=== PATIENT | male | born 1965 | race Asian ===

== ENCOUNTER 2019-08-07 17:53 | Emergency (ER) | payer SELFPAY ==
[2019-08-07 18:30] LABS: Absolute Lymphocytes (CBC) 2.1 K/uL (0.7-4.9); Basophils % 0.4 % (0-1.3); Hematocrit 44.3 % (39.6-49.0); Lymphocytes % 16.7 % (15.3-44.8); MPV 7.9 fL (7.6-11.3)
[2019-08-07] MEDS ORDERED: MECLIZINE HCL 12.5 MG TAB ONE (18:30)
[2019-08-07] MEDS ORDERED: NA CHLORIDE 0.9% 1,000 ML ONE (18:30)
[2019-08-07 18:32] LABS: Protime INR 1.02
[2019-08-07 18:51] LABS: BUN Blood Urea Nitrogen 12 mg/dL (7-18); Bicarbonate 26 mmol/L (21-32); Glucose Level 120 mg/dL (74-106); Potassium 3.6 mmol/L (3.5-5.1); Sodium Level 136 mmol/L (136-145); Troponin (Emerg Dept Use Only) < 0.02 ng/mL (0.0-0.045)
--- NOTE | 2019-08-07 19:02 | RAD REPORT ---
EXAM DESCRIPTION: CT - Head Brain Wo Cont - 08/07/2019 6:50 pm CLINICAL HISTORY: Dizziness COMPARISON: None. TECHNIQUE: Computed axial tomography of the head was obtained. IV contrast was not requested. All CT scans are performed using dose optimization technique as appropriate and may include automated exposure control or mA/KV adjustment according to patient size. FINDINGS: An intracranial bleed is not seen . The ventricles are normal in caliber. No extra-axial fluid collection is noted. Fluid within the sinuses/ mastoids is not seen. IMPRESSION: No acute intracranial abnormality is seen. If patient's symptoms persist MRI of the bra in would be recommended.
[2019-08-07] MEDS ORDERED: ASPIRIN 81 MG CHEWABLE TABLET ONE (19:36)
--- NOTE | 2019-08-07 19:48 | RAD REPORT ---
EXAM DESCRIPTION: CTHead angio08/07/2019 7:35 pm CLINICAL HISTORY: Ataxia/dizziness COMPARISON: None TECHNIQUE: CT angiogram of the head was obtained. 3D MIPS reconstruction performed. All CT scans are performed using dose optimization technique as appropriate and may include automated exposure control or mA/KV adjustment according to patient size. FINDINGS: The basilar, internal carotid, anterior cerebral, middle cerebral and posterior cerebral a rteries are normal caliber. An aneurysm is not seen. A significant stenosis is not noted. IMPRESSION: Unremarkable CT angiogram head.
--- NOTE | 2019-08-07 19:58 | RAD REPORT ---
EXAM DESCRIPTION: [place] Angio08/07/2019 7:40 pm CLINICAL HISTORY: Ataxia/dizziness COMPARISON: None TECHNIQUE: 50 cc Isovue 370 was administered intravenously. 3D MIP reconstruction performed All CT scans are performed using dose optimization technique as appropriate and may include automated exposure control or mA/KV adjustment according to patient size. FINDINGS: The common carotid, internal carotid and external carotid arteries bilaterally are normal caliber. Plaque is not noted. The right vertebral artery is dominant. The vertebral arteries are normal caliber. IMPRESSION: Unremarkable exam NASCET criteria used. Mild 0-49% stenosis Moderate 50-69% stenosis Severe 70-99% stenosis
[2019-08-07 20:12] LABS: Urine Blood NEGATIVE (NEG); Urine Glucose NEGATIVE (NEG); Urine Protein NEGATIVE (NEG); Urine Specific Gravity 1.015 (1.005-1.030)
--- NOTE | 2019-08-07 20:27 | ER ---
Nurse's Notes [facility] Name: Brandin Barker Age: 54 yrs Sex: Male : 1965 Arrival Date: 08/07/2019 Time: 18:01 Bed 4 Private MD: Diagnosis: Vertiginous syndromes in diseases classified elsewhere;Dizziness and giddiness Presentation: 08/06 19:06 Chief complaint: Patient states: ROOM SPINS WHEN I GET OUT OF BED. STARTED THIS ls4 MORNING. PT STATES HE STILL CANNOT STAND UP BECAUSE THE ROOM SPINS AND HE FEELS LIKE HE MAY FALL. 19:06 Coronavirus screen: Proceed with normal triage. Patient denies a cough. Patient denies ls4 shortness of breath or difficulty breathing. Patient denies measured and/or subjective temperature greater than 100.4F prior to today's visit. Patient denies travel on a cruise ship or to a country the [facility] currently lists as an affected area. Patient denies contact with known and/or suspected case of COVID-19. Ebola Screen: No symptoms or risks identified at this time. Initial Sepsis Screen: Does the patient meet any 2 criteria? No. Patient's initial sepsis screen is negative. Does the patient have a suspected source of infection? No. Patient's initial sepsis screen is negative. Risk Assessment: Do you want to hurt yourself or someone else? Patient reports no desire to harm self or others. Onset of symptoms was August 07, 2019 at 08:00. Care prior to arrival: IV initiated. 18 GA, in the right hand. 19:06 Method Of Arrival: EMS: [facility] ls4 19:06 Acuity: FLORY 3 ls4 19:07 Activity prior to arrival: None. ls4 Triage Assessment: 19:57 General: Appears in no apparent distress. Behavior is calm, cooperative. Pain: Denies ls4 pain. Neuro: Level of Consciousness is awake, alert, Oriented to person, place, time, situation, Stripper And Taper are equal bilaterally. Cardiovascular: No deficits noted. Respiratory: No deficits noted. Denies cough, shortness of breath at rest, on exertion. GI: No deficits noted. No signs and/or symptoms were reported involving the gastrointestinal system. : No deficits noted. No signs and/or symptoms were reported regarding the genitourinary system. Derm: No signs and/or symptoms reported regarding the dermatologic system. Skin is intact. Musculoskeletal: No deficits noted. No signs and/or symptoms reported regarding the musculoskeletal system. Historical: - Allergies: 19:56 No Known Allergies; ls4 - Home Meds: 19:57 None [Active]; ls4 - PMHx: 19:57 None; ls4 - Immunization history:: Adult Immunizations up to date, Last tetanus immunization: unknown, Flu vaccine is not up to date. It has been more than one year since last vaccine. - Social history:: Smoking status: Patient denies any tobacco usage or history of. Patient/guardian denies using alcohol, street drugs, IV drugs. - Family history:: not pertinent. - Hospitalizations: : No recent hospitalization is reported. Screenin:00 Abuse screen: Denies threats or abuse. Denies injuries from another. ls4 18:00 Tuberculosis screening: No symptoms or risk factors identified. Fall Risk None ls4 identified. 20:00 Nutritional screening: No deficits noted. ls4 Assessment: 20:57 Reassessment: Patient appears in no apparent distress at this time. Patient is alert, lp1 oriented x 3, equal unlabored respirations, skin warm/dry/pink. Patient states feeling better. Patient states symptoms have improved. 20:58 Reassessment: Steady gait noted on discharge out to family. lp1 Vital Signs: 19:07 BP 145 / 89; Pulse 72; Resp 14; Temp 97.9(O); Pulse Ox 98% on R/A; Weight 77.11 kg; ls4 Height 5 ft. 4 in. (162.56 cm); Pain 0/10; 20:58 BP 128 / 82; Pulse 73; Resp 18; Pulse Ox 98% on R/A; lp1 19:07 Body Mass Index 29.18 (77.11 kg, 162.56 cm) ls4 NIH Stroke Scale Scores: 19:52 NIHSS Score: 0 sue ED Course: 18:01 Patient arrived in ED. rn 18:01 Gómez Campuzano MD is Attending Physician. rn 18:02 Arm band placed on. ls4 18:42 EKG done, by ED staff. Inserted saline lock: 20 gauge in right antecubital area, using lt1 aseptic technique. 18:50 CT Head Brain wo Cont In Process Unspecified. EDMS 19:04 Spenser, Li, RN is Primary Nurse. ls4 19:06 Attending Physician role handed off by Gómez Campuzano MD sue 19:06 Ga Coto MD is Attending Physician. sue 19:16 Basic Metabolic Panel Sent. ls4 19:16 CBC with Diff Sent. ls4 19:33 Triage completed. ls4 19:35 CT Head Angio In Process Unspecified. EDMS 19:40 CT Neck Angio In Process Unspecified. EDMS 20:00 No provider procedures requiring assistance completed. ls4 20:26 Oscar Gannon MD is Referral Physician. sue 20:57 IV discontinued, No redness/swelling at site. Pressure dressing applied. lp1 Administered Medications: 18:18 Drug: Meclizine 50 mg Route: PO; rb1 19:00 Follow up: Response: No adverse reaction; Marked relief of symptoms ls4 18:30 Drug: NS 0.9% 1000 ml Route: IV; Rate: 1000 ml; Site: right antecubital; rb1 19:00 Follow up: IV Status: Completed infusion; IV Intake: 1000ml ls4 19:44 Drug: Aspirin Chewable Tablet 162 mg Route: PO; jd3 Intake: 19:00 IV: 1000ml; Total: 1000ml. ls4 Outcome: 20:26 Discharge ordered by . sue 20:57 Discharged to home ambulatory, with family. lp1 20:57 Condition: good 20:57 Discharge instructions given to patient, family, Spoke with family member on phone about discharge instructions; patient and family demonstrate understanding Instructed on discharge instructions, follow up and referral plans. medication usage, Demonstrated understanding of instructions, follow-up care, medications, Prescriptions given X 3. 20:59 Patient left the ED. lp1 NIH Stroke Scale - NIH Stroke Score Date: 08/07/2019 Time: 19:52 Total Score = 0 1a. Level of Consciousness (LOC) - 0(Alert) 1b. Level of Consciousness (LOC) (Year \T\ Age) - 0(Both) 1c. LOC Commands (Open \T\ Closes Eyes/Poultice Machine Operator) - 0(Both) 2. Best Gaze (Lateral Gaze Paresis) - 0(Normal) 3. Visual Field Loss - 0(No visual loss) 4. Facial Palsy - 0(Normal) 5a. Left Arm: Motor (10-second hold) - 0(No drift) 5b. Right Arm: Motor (10-second hold) - 0(No drift) 6a. Left Leg: Motor (5-second hold - always test supine) - 0(No drift) 6b. Right Leg: Motor (5-second hold - always test supine) - 0(No drift) 7. Limb Ataxia (finger/nose \T\ heel/callahan - test with eyes open) - 0(Absent) 8. Sensory Loss (pinprick arms/legs/face) - 0(Normal) 9. Best Language: Aphasia (description/naming/reading) - 0(No aphasia) 10. Dysarthria (speech clarity - read or repeat words) - 0(Normal) 11. Extinction and Inattention (visual/tactile/auditory/spatial/personal) - 0(No abnormality) Initials: sue Signatures: Dispatcher [employer] EDGa Benz MD MD cha Nieto, Roman, MD MD rn Pena, Laura, RN RN lp1 Chetna Waters RN RN rb1 Miki Goodson RN RN Li Jensen RN RN ls4 Elise Greer 1
--- NOTE | 2019-08-07 20:27 | EDPHYS ---
Physician Documentation [facility] Name: Brandin Barker Age: 54 yrs Sex: Male : 1965 Arrival Date: 08/07/2019 Time: 18:01 Bed 4 Private MD: ED Physician Ga Coto HPI: 08/06 18:15 This 54 yrs old Male presents to ER via Unassigned with complaints of dizziness, rn vomiting. 18:15 The patient presents with dizziness, lightheadedness, feeling off balance, sense of rn spinning. Onset: The symptoms/episode began/occurred at 10:00. Modifying factors: The symptoms are alleviated by closing eyes, holding head still, lying down, the symptoms are aggravated by movement of head, standing up, changing position. Severity of symptoms: At their worst the symptoms were moderate in the emergency department the symptoms have improved. The patient has not experienced similar symptoms in the past. Per EMS and cardiology fellow, pt began around 1000 today with dizziness, lightheaded, feeling off balance. No headache. No fever or trauma. No focal neuro complaints. No known medical problems. Given zofran by EMS with some improvement. No dizziness when holding head still. No vision or speech problem. . Historical: - Allergies: 19:56 No Known Allergies; ls4 - Home Meds: 19:57 None [Active]; ls4 - PMHx: 19:57 None; ls4 - Immunization history:: Adult Immunizations up to date, Last tetanus immunization: unknown, Flu vaccine is not up to date. It has been more than one year since last vaccine. - Social history:: Smoking status: Patient denies any tobacco usage or history of. Patient/guardian denies using alcohol, street drugs, IV drugs. - Family history:: not pertinent. - Hospitalizations: : No recent hospitalization is reported. ROS: 18:15 Constitutional: Negative for fever, chills, and weight loss, Eyes: Negative for injury, rn pain, redness, and discharge, Neck: Negative for injury, pain, and swelling, Cardiovascular: Negative for chest pain, palpitations, and edema, Respiratory: Negative for shortness of breath, cough, wheezing, and pleuritic chest pain, Abdomen/GI: Negative for abdominal pain, diarrhea, and constipation, MS/Extremity: Negative for injury and deformity, Skin: Negative for injury, rash, and discoloration, Neuro: Negative for headache, weakness, numbness, tingling, and seizure. Exam: 18:15 Constitutional: This is a well developed, well nourished patient who is awake, alert, rn and in no acute distress. Laying comfortably with legs crossed and arms behind head. Head/Face: Normocephalic, atraumatic. Eyes: Pupils equal round and reactive to light, extra-ocular motions intact. Lids and lashes normal. Conjunctiva and sclera are non-icteric and not injected. Cornea within normal limits. Periorbital areas with no swelling, redness, or edema. ENT: MMM Neck: Trachea midline, no thyromegaly or masses palpated, and no cervical lymphadenopathy. Supple, full range of motion without nuchal rigidity, or vertebral point tenderness. No Meningismus. Cardiovascular: Regular rate and rhythm. No pulse deficits. Respiratory: Lungs have equal breath sounds bilaterally, clear to auscultation. No increased work of breathing, no retractions or nasal flaring. Abdomen/GI: soft, non-tender MS/ Extremity: Pulses equal, no cyanosis. Neurovascular intact. Full, normal range of motion. Equal circumference. Neuro: Awake and alert, GCS 15. Cranial nerves II-XII grossly intact. Motor strength 5/5 in all extremities. Sensory grossly intact. Cerebellar exam normal. Mild dizziness with rotation of head and when sitting upright in bed. 18:41 ECG was reviewed by the Attending Physician. rn 19:22 Neck: External neck: is normal, C-spine: appears grossly normal, no acute changes, sue Thyroid: appears normal, Trachea: is midline with no obvious abnormalities, no acute changes, ROM/movement: is normal, no acute changes, Lymph nodes: no appreciated lymphadenopathy, no carotid bruits. 19:22 ECG was reviewed by the Attending Physician. Vital Signs: 19:07 BP 145 / 89; Pulse 72; Resp 14; Temp 97.9(O); Pulse Ox 98% on R/A; Weight 77.11 kg; ls4 Height 5 ft. 4 in. (162.56 cm); Pain 0/10; 20:58 BP 128 / 82; Pulse 73; Resp 18; Pulse Ox 98% on R/A; lp1 19:07 Body Mass Index 29.18 (77.11 kg, 162.56 cm) ls4 NIH Stroke Scale Scores: 19:52 NIHSS Score: 0 sue MDM: 18:01 Patient medically screened. rn 19:17 Differential diagnosis: cardiac arrhythmia, CVA, hypovolemia, idiopathic dizziness, sue TIA, vertigo. Data reviewed: vital signs, nurses notes, EMS record, lab test result(s), EKG, radiologic studies, CT scan, plain films. Data interpreted: media monitor: rate is 64 beats/min, Pulse oximetry: on room air is 100 %. Test interpretation: by ED physician or midlevel provider: ECG, plain radiologic studies. Counseling: I had a detailed discussion with the patient and/or guardian regarding: the historical points, exam findings, and any diagnostic results supporting the discharge/admit diagnosis, lab results, radiology results, the need for outpatient follow up, for definitive care, a neurologist. ED course: pt dizzy with rom of head, improves with holding head still, pt improved with meds, symptoms improved, labs and studies explained. 20:25 Medication response: meclizine good response. ED course: all test reviewed and sue explained, will follow up and or return to er if worse. 08/06 18:02 Order name: Basic Metabolic Panel rn 08/06 18:02 Order name: CBC with Diff rn 08/06 18:02 Order name: Magnesium; Complete Time: 19:16 rn 08/06 18:02 Order name: Protime (+inr); Complete Time: 18:46 rn 08/06 18:02 Order name: Ptt, Activated; Complete Time: 18:46 rn 08/06 18:02 Order name: Troponin (emerg Dept Use Only); Complete Time: 19:16 rn 08/06 18:02 Order name: CT Head Brain wo Cont; Complete Time: 19:16 rn 08/06 18:03 Order name: Basic Metabolic Panel; Complete Time: 19:16 EDMS 08/06 18:03 Order name: CBC with Automated Diff; Complete Time: 18:46 EDMS 08/06 18:48 Order name: CT Head Angio; Complete Time: 20:25 rn 08/06 18:48 Order name: CT Neck Angio; Complete Time: 20:25 rn 08/06 19:42 Order name: Urine Dipstick--Ancillary (enter results); Complete Time: 20:25 ga 08/06 18:02 Order name: EKG; Complete Time: 18:03 rn 08/06 18:02 Order name: Cardiac monitoring; Complete Time: 18:48 rn 08/06 18:02 Order name: EKG - Nurse/Tech; Complete Time: 18:48 rn 08/06 18:02 Order name: IV Saline Lock; Complete Time: 18:47 rn 08/06 18:02 Order name: Labs collected and sent; Complete Time: 18:47 rn 05 18:02 Order name: NPO; Complete Time: 18:47 rn 05 18:02 Order name: O2 Per Protocol; Complete Time: 18:47 rn 05 18:02 Order name: O2 Sat Monitoring; Complete Time: 18:47 rn 05 18:02 Order name: Urine Dipstick-Ancillary (obtain specimen); Complete Time: 19:53 rn EC:41 Rate is 64 beats/min. Rhythm is regular. QRS [place] is Normal. [place] interval is normal. QRS rn interval is normal. QT interval is normal. No Q waves. T waves are Normal. No ST changes noted. Clinical impression: Normal ECG. Interpreted by me. Reviewed by me. 19:22 Rate is 64 beats/min. Rhythm is regular. QRS [place] is Normal. [place] interval is normal. QRS sue interval is normal. QT interval is normal. No Q waves. T waves are Normal. No ST changes noted. Clinical impression: Normal ECG. Interpreted by me. Reviewed by me. Administered Medications: 18:18 Drug: Meclizine 50 mg Route: PO; rb1 19:00 Follow up: Response: No adverse reaction; Marked relief of symptoms ls4 18:30 Drug: NS 0.9% 1000 ml Route: IV; Rate: 1000 ml; Site: right antecubital; rb1 19:00 Follow up: IV Status: Completed infusion; IV Intake: 1000ml ls4 19:44 Drug: Aspirin Chewable Tablet 162 mg Route: PO; jd3 Disposition: 08/07/19 20:26 Discharged to Home. Impression: Vertiginous syndromes in diseases classified elsewhere, Dizziness and giddiness. - Condition is Stable. - Discharge Instructions: Benign Positional Vertigo, Dizziness, Vertigo, Vertigo, [id number]-[id number], Aspirin and Your Heart, Motion Sickness, Vxun-ks-Vjix, Dizziness, Rtgn-[id number]. - Prescriptions for Meclizine 25 mg Oral Tablet - take 1 tablet by ORAL route every 8 hours As needed; 30 tablet. Zofran 4 mg Oral Tablet - take 1 tablet by ORAL route every 12 hours As needed; 14 tablet. - Medication Reconciliation Form, Thank You Letter, Antibiotic Education, Prescription Opioid Use form. - Follow up: Private Physician; When: 2 - 3 days; Reason: Recheck today's complaints, Continuance of care, Re-evaluation by your physician. Follow up: Oscar Gannon; When: 2 - 3 days; Reason: Recheck today's complaints, Continuance of care, Re-evaluation by your physician. - Problem is new. - Symptoms have improved. Critical care time excluding procedures: 19:17 Critical care time: Bedside Care: 20 minutes. Total time: 20 minutes sue NIH Stroke Scale - NIH Stroke Score Date: 08/07/2019 Time: 19:52 Total Score = 0 1a. Level of Consciousness (LOC) - 0(Alert) 1b. Level of Consciousness (LOC) (Year \T\ Age) - 0(Both) 1c. LOC Commands (Open \T\ Closes Eyes/Instrument/Control Technician) - 0(Both) 2. Best Gaze (Lateral Gaze Paresis) - 0(Normal) 3. Visual Field Loss - 0(No visual loss) 4. Facial Palsy - 0(Normal) 5a. Left Arm: Motor (10-second hold) - 0(No drift) 5b. Right Arm: Motor (10-second hold) - 0(No drift) 6a. Left Leg: Motor (5-second hold - always test supine) - 0(No drift) 6b. Right Leg: Motor (5-second hold - always test supine) - 0(No drift) 7. Limb Ataxia (finger/nose \T\ heel/callahan - test with eyes open) - 0(Absent) 8. Sensory Loss (pinprick arms/legs/face) - 0(Normal) 9. Best Language: Aphasia (description/naming/reading) - 0(No aphasia) 10. Dysarthria (speech clarity - read or repeat words) - 0(Normal) 11. Extinction and Inattention (visual/tactile/auditory/spatial/personal) - 0(No abnormality) Initials: [facility] Signatures: Dispatcher [employer] Ga Fuller MD MD cha Nieto, Roman, MD MD rn Merary Heredia RN RN lp1 Chetna Waters, RN RN rb1 Miki Goodson RN RN jd3 Li Dueñas RN RN ls4 Corrections: (The following items were deleted from the chart) 20:59 20:26 08/07/2019 20:26 Discharged to Home. Impression: Vertiginous syndromes in lp1 diseases classified elsewhere; Dizziness and giddiness. Condition is Stable. Discharge Instructions: Benign Positional Vertigo, Dizziness, Vertigo, Vertigo, Dnaf-js-Iguh, Aspirin and Your Heart, Motion Sickness, Soqw-[id number]-Kkzk, Dizziness, Josq-rs-Mrle. Prescriptions for Meclizine 25 mg Oral Tablet - take 1 tablet by ORAL route every 8 hours As needed; 30 tablet, Zofran 4 mg Oral Tablet - take 1 tablet by ORAL route every 12 hours As needed; 14 tablet. and Forms are Medication Reconciliation Form, Thank You Letter, Antibiotic Education, Prescription Opioid Use. Follow up: Private Physician; When: 2 - 3 days; Reason: Recheck today's complaints, Continuance of care, Re-evaluation by your physician. Follow up: Oscar Gannon; When: 2 - 3 days; Reason: Recheck today's complaints, Continuance of care, Re-evaluation by your physician. Problem is new. Symptoms have improved. sue
[2019-08-07 21:37] VITALS: TEMP 97.9; O2SAT 98
[2019-08-07 21:38] VITALS: BP 128/82
--- NOTE | 2019-08-09 10:54 | EKG ---
Test Date: 2019-08-07 Test Time: 18:35:46 Guide Escort: VIRGILIOT MEASUREMENT RESULTS: Intervals: Rate: 64 MD: 138 QRSD: 92 QT: 412 QTc: 425 [place]: P: 50 MD: 138 QRS: 46 T: 45 INTERPRETIVE STATEMENTS: Normal sinus rhythm Normal ECG No previous ECG available for comparison Electronically Signed On 08-09-19 10:49:30 CDT by Emiliano Pruitt
== END 2019-08-07 20:59 | disposition home or self-care (01) ==
LOC: ER 17:53
DX: R42 Dizziness and giddiness (principal); H82.9 Vertiginous syndromes in diseases classified elsewhere, unspecified ear
CPT/HCPCS: 36415; 70450; 70496; 70498; 80048; 81003; 83735; 84484; 85025; 85610; 85730; 93005; 99284; J7030; J8597; Q9967

== ENCOUNTER 2020-03-16 11:08 | Emergency (ER) | payer SELFPAY ==
[2020-03-16 12:43] LABS: Absolute Lymphocytes (CBC) 2.8 K/uL (0.7-4.9); Basophils % 0.2 % (0-1.3); Hematocrit 33.6 % (39.6-49.0); Lymphocytes % 15.5 % (15.3-44.8); MPV 7.8 fL (7.6-11.3); RBC Red Blood Cell Count 3.84 M/uL (4.33-5.43)
--- NOTE | 2020-03-16 12:49 | RAD REPORT ---
EXAM DESCRIPTION: CT - Head Brain Wo Cont - 03/16/2020 12:37 pm CLINICAL HISTORY: DIZZINESS Headache, nausea, dizziness COMPARISON: Head angio dated 08/07/2019; Head Brain Wo Cont dated 08/07/2019 TECHNIQUE: All CT scans are performed using dose optimization technique as appropriate and may inclu de automated exposure control or mA/KV adjustment according to patient size. FINDINGS: No intracranial hemorrhage, hydrocephalus or extra-axial fluid collection.No areas of brai n edema or evidence of midline shift. The paranasal sinuses and mastoids are clear. The calvarium is intact. IMPRESSION: No acute intracranial abnormality.
[2020-03-16 12:53] LABS: Protime INR 1.09
[2020-03-16 13:03] LABS: ALT/SGPT 55 U/L (12-78); AST/SGOT 17 U/L (15-37); Albumin 3.2 g/dL (3.4-5.0); Alkaline Phosphatase 40 U/L (45-117); BUN Blood Urea Nitrogen 37 mg/dL (7-18); Bicarbonate 29 mmol/L (21-32); Bilirubin Direct < 0.1 mg/dL (0-0.2); Bilirubin Total 0.2 mg/dL (0.2-1.0); Glucose Level 98 mg/dL (74-106); Magnesium 2.1 mg/dL (1.8-2.4); Potassium 4.7 mmol/L (3.5-5.1); Protein, Total 6.5 g/dL (6.4-8.2); Sodium Level 141 mmol/L (136-145); Troponin (Emerg Dept Use Only) 0.03 ng/mL (0.0-0.045)
[2020-03-16] MEDS ORDERED: ONDANSETRON 4 MG/2 ML VIAL ONE (13:03)
[2020-03-16] MEDS ORDERED: MECLIZINE HCL 12.5 MG TAB ONE (13:04)
[2020-03-16] MEDS ORDERED: NA CHLORIDE 0.9% 500 ML ONE (13:04)
--- NOTE | 2020-03-16 14:25 | ER ---
Nurse's Notes [facility] Name: Brandin Barker Age: 54 yrs Sex: Male : 1965 Arrival Date: 03/16/2020 Time: 11:18 Bed 17 Private MD: Diagnosis: Dizziness and giddiness;Nausea and vomiting Presentation: 03/16 11:18 Chief complaint: EMS states: pt was at work started feeling dizzy and nauseous , was iw 100/60 initially , HR increased from 80 to 115 , feeling better after fluids. Coronavirus screen: At this time, the client does not indicate any symptoms associated with coronavirus-19. Ebola Screen: Patient negative for fever greater than or equal to 101.5 degrees Fahrenheit, and additional compatible Ebola Virus Disease symptoms Patient denies exposure to infectious person. Patient denies travel to an Ebola-affected area in the 21 days before illness onset. No symptoms or risks identified at this time. Initial Sepsis Screen: Does the patient meet any 2 criteria? No. Patient's initial sepsis screen is negative. Does the patient have a suspected source of infection? No. Patient's initial sepsis screen is negative. Risk Assessment: Do you want to hurt yourself or someone else? Patient reports no desire to harm self or others. Onset of symptoms was March 16, 2020. 11:18 Method Of Arrival: EMS: [facility] iw 11:18 Acuity: FLORY 3 iw Historical: - Allergies: 11:20 No Known Allergies; iw - Immunization history:: Adult Immunizations unknown. - Social history:: Smoking status: Patient denies any tobacco usage or history of. Screenin:37 Abuse screen: Denies threats or abuse. Denies injuries from another. Nutritional iw screening: No deficits noted. Tuberculosis screening: No symptoms or risk factors identified. 13:00 Fall Risk None identified. ph Assessment: 12:00 General: Appears in no apparent distress. Behavior is calm, cooperative. Pain: Denies iw pain. Neuro: Level of Consciousness is awake, alert, obeys commands, Oriented to person, place, time, situation, Moves all extremities. Full function. Neuro: Reports dizziness, weakness. Cardiovascular: Patient's skin is warm and dry. Respiratory: Respiratory effort is even, unlabored, Respiratory pattern is regular, symmetrical. Derm: Skin is intact, is healthy with good turgor. Musculoskeletal: Range of motion: intact in all extremities. 14:52 Reassessment: Patient appears in no apparent distress at this time. Patient and/or ph family updated on plan of care and expected duration. Pain level reassessed. Patient is alert, oriented x 3, equal unlabored respirations, skin warm/dry/pink. Patient states feeling better. Patient states symptoms have improved. Vital Signs: 11:18 BP 123 / 81; Pulse 86; Resp 16; Pulse Ox 99% on R/A; iw 12:28 BP 106 / 63; Pulse 75; Resp 18; Temp 98.2; Pulse Ox 98% on R/A; kj1 12:47 BP 102 / 65 Supine; Pulse 76; kj1 12:48 BP 116 / 76 Sitting; Pulse 74; kj1 12:49 BP 120 / 65 Standing; Pulse 75; kj1 14:15 BP 118 / 72; Pulse 76; Resp 18; Temp 97.8; Pulse Ox 99% on R/A; ph ED Course: 11:18 Patient arrived in ED. iw 11:19 Triage completed. iw 12:08 Ga Carrasco PA is PHCP. cp 12:08 Chris Lemus MD is Attending Physician. cp 12:08 Shiela Barragan, HENRI is Primary Nurse. iw 12:32 Initial lab(s) drawn, by me, sent to lab. Inserted saline lock: 20 gauge in right kj1 antecubital area, using aseptic technique. Blood collected. 12:38 CT Head Brain wo Cont In Process Unspecified. EDMS 13:00 Patient has correct armband on for positive identification. Bed in low position. Call ph light in reach. Side rails up X 1. Pulse ox on. NIBP on. Door closed. Noise minimized. 14:22 Urine collected: clean catch specimen, clear, britney colored. jp3 14:53 No provider procedures requiring assistance completed. IV discontinued, intact, ph bleeding controlled, No redness/swelling at site. Pressure dressing applied. 14:53 Arm band placed on. ph Administered Medications: 12:55 Drug: Zofran (Ondansetron) 4 mg Route: IVP; Site: right antecubital; ph 14:52 Follow up: Response: No adverse reaction ph 12:55 Drug: Meclizine 25 mg Route: PO; ph 14:52 Follow up: Response: No adverse reaction ph 12:55 Drug: NS 0.9% 1000 ml Route: IV; Rate: 1 bolus; Site: right antecubital; ph 14:51 Follow up: Response: No adverse reaction; IV Status: Completed infusion; IV Intake: ph 750ml Intake: 14:51 IV: 750ml; Total: 750ml. ph Outcome: 14:25 Discharge ordered by MD. cp 14:53 Discharged to home ambulatory. ph 14:53 Condition: good 14:53 Discharge instructions given to patient, Instructed on discharge instructions, follow up and referral plans. medication usage, Demonstrated understanding of instructions, follow-up care, medications, Prescriptions given X 2. 14:54 Patient left the ED. ph Signatures: Dispatcher [employer] EDShiela Mai RN RN iw Nimco Palacio RN RN ph Ga Carrasco PA PA cp Pisarski, Jacob jp3 Susan Salazar kj1 Corrections: (The following items were deleted from the chart) 11:20 11:18 Pulse 86bpm; Resp 16bpm; Pulse Ox 99% RA; iw
--- NOTE | 2020-03-16 14:25 | EDPHYS ---
Physician Documentation [facility] Name: Brandin Barker Age: 54 yrs Sex: Male : 1965 Arrival Date: 03/16/2020 Time: 11:18 Bed 17 Private MD: ED Physician Chris Lemus HPI: 03/16 12:15 This 54 yrs old Male presents to ER via EMS with complaints of Dizziness. cp 12:15 The patient presents with lightheadedness. Onset: The symptoms/episode began/occurred cp today. Associated signs and symptoms: Pertinent positives: nausea, vomiting. 12:15 Patient's baseline: Neuro: alert and fully oriented, Motor: no deficits, Ambulation: cp walks without assistance, Speech: normal. 12:15 Severity of symptoms: in the emergency department the symptoms have improved mildly. cp Historical: - Allergies: 11:20 No Known Allergies; iw - Immunization history:: Adult Immunizations unknown. - Social history:: Smoking status: Patient denies any tobacco usage or history of. ROS: 12:18 Constitutional: Negative for body aches, chills, fever, poor PO intake. cp 12:18 Eyes: Negative for injury, pain, redness, and discharge. cp 12:18 ENT: Negative for ear pain, sore throat, difficulty swallowing, difficulty handling secretions. 12:18 Cardiovascular: Negative for chest pain, edema, palpitations. 12:18 Respiratory: Negative for cough, shortness of breath, wheezing. 12:18 Abdomen/GI: Positive for nausea and vomiting, Negative for abdominal pain, diarrhea, constipation, anorexia, black/tarry stool, rectal bleeding. 12:18 Back: Negative for pain at rest, pain with movement. 12:18 Neuro: Positive for dizziness, Negative for altered mental status, headache, syncope, weakness. 12:18 All other systems are negative. Exam: 12:22 Constitutional: The patient appears in no acute distress, alert, awake, cp non-diaphoretic, non-toxic, well developed, well nourished. 12:22 Head/Face: Normocephalic, atraumatic. cp 12:22 Eyes: Periorbital structures: appear normal, Pupils: equal, round, and reactive to cp light and accomodation, Extraocular movements: intact throughout, Conjunctiva: normal, no exudate, no injection. 12:22 ENT: External ear(s): are unremarkable, Nose: is normal, Mouth: Lips: moist, Oral mucosa: moist, Posterior pharynx: Airway: no evidence of obstruction, patent. 12:22 Chest/axilla: Inspection: normal, Palpation: is normal, no crepitus, no tenderness. 12:22 Cardiovascular: Rate: normal, Rhythm: regular. 12:22 Respiratory: the patient does not display signs of respiratory distress, Respirations: cp normal, no use of accessory muscles, no retractions, labored breathing, is not present, Breath sounds: are clear throughout, no decreased breath sounds. 12:22 Abdomen/GI: Inspection: abdomen appears normal, Palpation: abdomen is soft and non-tender, in all quadrants. 12:22 Neuro: Orientation: to person, place \T\ time. Mentation: is normal, Cerebellar function: Romberg testing is negative, normal finger to nose testing, Motor: moves all fours, strength is normal, Sensation: no obvious gross deficits, Gait: is steady. 12:25 ECG was reviewed by the Attending Physician. Vital Signs: 11:18 BP 123 / 81; Pulse 86; Resp 16; Pulse Ox 99% on R/A; iw 12:28 BP 106 / 63; Pulse 75; Resp 18; Temp 98.2; Pulse Ox 98% on R/A; kj1 12:47 BP 102 / 65 Supine; Pulse 76; kj1 12:48 BP 116 / 76 Sitting; Pulse 74; kj1 12:49 BP 120 / 65 Standing; Pulse 75; kj1 14:15 BP 118 / 72; Pulse 76; Resp 18; Temp 97.8; Pulse Ox 99% on R/A; ph MDM: 12:15 Patient medically screened. cp 14:25 Data reviewed: vital signs, nurses notes, lab test result(s), EKG, radiologic studies, cp CT scan, and as a result, I will discharge patient. 14:25 Differential diagnosis: cardiac arrhythmia, CVA, generalized weakness, GI bleed, cp hypovolemia, idiopathic dizziness, vertigo. Test interpretation: by ED physician or midlevel provider: ECG. Counseling: I had a detailed discussion with the patient and/or guardian regarding: the historical points, exam findings, and any diagnostic results supporting the discharge/admit diagnosis, lab results, radiology results, to return to the emergency department if symptoms worsen or persist or if there are any questions or concerns that arise at home. Response to treatment: the patient's symptoms have markedly improved after treatment. ED course: VSS. Patient reports symptoms markedly improved. Will discharge to home for continued monitoring. 03/16 12:15 Order name: Basic Metabolic Panel; Complete Time: 13:20 03/16 13:20 Interpretation: Normal except: CL 109; BUN 37. 03/16 12:15 Order name: CBC with Diff; Complete Time: 12:54 cp 12 12:54 Interpretation: Normal except: WBC 18.1; RBC 3.84; HGB 11.4; HCT 33.6; KEVIN% 78.4; NEUT cp A 14.2. 03/16 12:15 Order name: LFT's; Complete Time: 13:20 03/16 13:21 Interpretation: Normal except: ALK 40; ALB 3.2; A/G 1.0. 03/16 12:15 Order name: Magnesium; Complete Time: 13:20 03/16 12:15 Order name: PT-INR; Complete Time: 13:20 03/16 13:21 Interpretation: Abnormal: PT 12.8. 03/16 12:15 Order name: Troponin (emerg Dept Use Only); Complete Time: 13:20 03/16 13:21 Interpretation: Reviewed. 03/16 12:15 Order name: Orthostatics; Complete Time: 12:55 03/16 12:15 Order name: CT Head Brain wo Cont; Complete Time: 12:54 03/16 12:55 Interpretation: Report reviewed. 03/16 12:15 Order name: EKG; Complete Time: 12:16 03/16 13:22 Order name: Urine Microscopic Only 03/16 14:26 Order name: Urine Dipstick--Ancillary (enter results) dh3 03/16 12:15 Order name: Cardiac monitoring; Complete Time: 12:21 03/16 12:15 Order name: EKG - Nurse/Tech; Complete Time: 12:21 03/16 12:15 Order name: IV Saline Lock; Complete Time: 12:21 03/16 12:15 Order name: Labs collected and sent; Complete Time: 12:21 03/16 12:15 Order name: O2 Per Protocol; Complete Time: 12:21 cp 12 12:15 Order name: O2 Sat Monitoring; Complete Time: 12:21 cp 12 12:15 Order name: Urine Dipstick-Ancillary (obtain specimen); Complete Time: 14:23 cp EC:25 Rate is 83 beats/min. Rhythm is regular. MI interval is normal. QRS interval is normal. cp QT interval is normal. T waves are Inverted in lead aVR. Interpreted by me. Reviewed by me. Administered Medications: 12:55 Drug: Zofran (Ondansetron) 4 mg Route: IVP; Site: right antecubital; ph 14:52 Follow up: Response: No adverse reaction ph 12:55 Drug: Meclizine 25 mg Route: PO; ph 14:52 Follow up: Response: No adverse reaction ph 12:55 Drug: NS 0.9% 1000 ml Route: IV; Rate: 1 bolus; Site: right antecubital; ph 14:51 Follow up: Response: No adverse reaction; IV Status: Completed infusion; IV Intake: ph 750ml Disposition: 15:31 Co-signature as Attending Physician, Chris Lemus MD I agree with the assessment and kdr plan of care. Disposition: 03/16/20 14:25 Discharged to Home. Impression: Dizziness and giddiness, Nausea and vomiting. - Condition is Stable. - Discharge Instructions: Dizziness, Nausea and Vomiting, Adult. - Prescriptions for Meclizine 25 mg Oral Tablet - take 1 tablet by ORAL route every 8 hours As needed; 30 tablet. Zofran 4 mg Oral Tablet - take 1 tablet by ORAL route every 12 hours As needed; 20 tablet. - Medication Reconciliation Form, Thank You Letter, Antibiotic Education, Prescription Opioid Use form. - Follow up: Private Physician; When: 1 - 2 days. - Problem is new. - Symptoms have improved. Signatures: Dispatcher [employer] EDMS Chris Lemus MD MD kdr Shiela Barragan RN RN iw Nimco Palacio RN RN ph Ga Carrasco PA PA cp Corrections: (The following items were deleted from the chart) 14:54 14:25 03/16/2020 14:25 Discharged to Home. Impression: Dizziness and giddiness; Nausea ph and vomiting. Condition is Stable. Forms are Medication Reconciliation Form, Thank You Letter, Antibiotic Education, Prescription Opioid Use. Follow up: Private Physician; When: 1 - 2 days. Problem is new. Symptoms have improved. cp
[2020-03-16 14:48] LABS: Urine Bacteria NONE SEEN /HPF (NONE SEEN); Urine RBC <5 /HPF (NONE SEEN)
[2020-03-16 14:48] LABS: Urine Blood NEGATIVE (NEG); Urine Glucose NEGATIVE (NEG); Urine Protein NEGATIVE (NEG); Urine Specific Gravity 1.015 (1.005-1.030); Urine pH 6.5 (5.0-7.0)
[2020-03-21 18:02] VITALS: BP 118/72; TEMP 97.8; O2SAT 99
== END 2020-03-16 14:54 | disposition home or self-care (01) ==
LOC: ER 11:08
DX: R11.2 Nausea with vomiting, unspecified (principal)
CPT/HCPCS: 36415; 70450; 80048; 80076; 81003; 81015; 83735; 84484; 85025; 85610; 93005; 96361; 96374; 99284; J2405; J7040